=== PATIENT | male | born 1955 | race Caucasian/White ===

== ENCOUNTER 2017-06-27 08:11 | Outpatient (CLI) | payer BC ==
--- NOTE | 2017-06-27 11:00 | MRI ---
MRI LUMBAR SPINE WITHOUT CONTRAST: Comparison: None. History: Low back pain with pain extending down the left leg for awhile. Technique: Multiplanar, multisequence MRI images were obtained of the lumbar spine without contrast. FINDINGS: Generalized disc desiccation is seen. The vertebral bodies demonstrate normal height and alignment wi thout fracture or subluxation. There is hemangioma in the L3 vertebral body. The conus medullaris ter minates normally at T12-L1. The prevertebral and paraspinal soft tissues are unremarkable. T12-L1: Unremarkable. L1-2: A minimal disc osteophyte complex is seen. Mild bilateral posterior facet arthrosis. Mild centr al canal stenosis. No neural foraminal stenosis. L2-3: A large disc osteophyte complex is seen. Moderate to severe posterior facet arthrosis. Severe c entral canal stenosis. There is redundancy of the nerve roots just above this level. Mild to moderate bilateral neural foraminal stenosis. L3-4: A moderate disc osteophyte complex is seen. Mild bilateral posterior facet arthrosis. Moderate central canal stenosis. Moderate bilateral neural foraminal stenosis. L4-5: A moderate disc osteophyte complex is seen. Mild bilateral posterior facet arthrosis. Mild cent ral canal stenosis. Moderate bilateral neural foraminal stenosis. L5-S1: Unremarkable. IMPRESSION: Degenerative changes of the lumbar spine as above. POS: TARA
== END 2017-06-27 08:12 | disposition home or self-care (01) ==
LOC: TBSIIMAG 08:11
PROVIDERS: ATTEND Specialist
DX: M47.26 Other spondylosis with radiculopathy, lumbar region (principal)
CPT/HCPCS: 72148

== ENCOUNTER 2017-11-10 09:53 | Inpatient (IN) | payer BC ==
[2017-11-07 17:10] VITALS: BMI 30.5
[2017-11-10] MEDS ORDERED: CEFAZOLIN/Water 2 GM/20 ML SYRINGE ONE (10:41)
[2017-11-10] MEDS ORDERED: ePHEDrine/0.9% NaCl/PF SYRINGE 50 mg/10 ml ONE (11:09)
[2017-11-10] MEDS ORDERED: Dexamethasone 20 MG/5 ML VIAL ONE (11:09)
[2017-11-10] MEDS ORDERED: Glycopyrrolate 0.2 MG/ML 5 ML SYRINGE ONE (11:09)
[2017-11-10] MEDS ORDERED: Metoclopramide HCl 10 MG/2 ML VIAL ONE (11:09)
[2017-11-10] MEDS ORDERED: PROPOFOL 200 MG/20 ML VIAL ONE (11:09)
[2017-11-10] MEDS ORDERED: Ondansetron HCl/PF 4 MG/2 ML Vial ONE (11:09)
[2017-11-10] MEDS ORDERED: Lidocaine 1% PF 5 ML VIAL ONE (11:09)
[2017-11-10] MEDS ORDERED: PHENYLEPHRINE-NS 100 MCG/ML 10 ML SYRINGE ONE (11:09)
[2017-11-10] MEDS ORDERED: Bacitracin Zinc Ointment 30 gm TUBE ONE (11:37)
[2017-11-10] MEDS ORDERED: Sodium Chloride 0.9% 10 ML ONE (11:37)
[2017-11-10] MEDS ORDERED: Thrombin 5000 UNITS/5 ML VIAL ONE (11:37)
[2017-11-10] MEDS ORDERED: Fentanyl 100 MCG/2 ML VIAL ONE ×6 (12:34→18:05)
[2017-11-10] MEDS ORDERED: Mag-Al 1200 mg/1200 mg/30 ML UDCUP PO PRN (15:41)
[2017-11-10] MEDS ORDERED: Promethazine HCl 25 MG/ML VIAL IM PRN ×2 (15:41→16:32)
[2017-11-10] MEDS ORDERED: Fleet Enema 133 ML BOT PR PRN (15:41)
[2017-11-10] MEDS ORDERED: Acetaminophen 325 MG TAB PO PRN (15:41)
[2017-11-10] MEDS ORDERED: traMADol HCl 50 MG TAB PO PRN (15:41)
[2017-11-10] MEDS ORDERED: Bisacodyl 10 MG SUPP PR PRN (15:41)
[2017-11-10] MEDS ORDERED: Milk Of Magnesia 30 ML UDCUP PO PRN (15:41)
[2017-11-10] MEDS ORDERED: Acetaminophen/Codeine 30-300mg Tablet PO PRN (15:41)
[2017-11-10] MEDS ORDERED: Promethazine HCl 25 MG/ML VIAL SLOW IVP PRN (16:32)
[2017-11-10] MEDS ORDERED: Ondansetron HCl/PF 4 MG/2 ML Vial IVP PRN (16:32)
--- NOTE | 2017-11-10 19:36 | OP ---
OR: 12. WOUND TYPE: Type 1 wound. SURGEON: Stevne Smith M.D. STEAM BOX HAND: Marcelino Foley PA-C. PREPROCEDURE DIAGNOSES: Multilevel lumbar stenosis, low back and leg pain, left L3-L4 disk extrusion . POSTPROCEDURE DIAGNOSES: Multilevel lumbar stenosis, low back and leg pain, left L3-L4 disk extrusio n. PROCEDURES PERFORMED: 1. L2-L3, L3-L4, L4-L5 laminectomies, partial facetectomies and foraminotomies over the L2, L3, L4, L5 nerve roots. 2. Left L3-L4 diskectomy. 3. Use of operative microscope for microdissection. DESCRIPTION OF PROCEDURE: After informed consent was obtained from the patient, the patient was brou ght to OR 12. Proper patient pause and identification was carried out. He was placed on excellent g eneral endotracheal anesthesia and positioned prone on the OR table. The L2, L3, L4, L5 dorsal spine s and lamina were exposed. Following sterile cleansing and preparation draping, proper patient pause and identification exposure. L2, L3, L4 and L5 dorsal spines lamina were exposed. L2, L3, L4, L5 l aminectomies, partial facetectomies and foraminotomies were performed after localization. Left L3-L4 diskectomy was performed with use of the operative microscope for microdissection. We had excellent decompression of the L2, L3, L4, L5 nerve roots bilaterally. Hemostasis was maximized throughout. The wound was copiously irrigated, closed in anatomic layers following hemostasis and sprinkling of v ancomycin powder. The patient then emerged from anesthesia.
[2017-11-10] MEDS: Sodium Chloride 0.9% 1,000 ML IV SCH ×2 (20:10→23:57)
[2017-11-10] MEDS: Pregabalin 25 MG CAP PO SCH ×2 (20:11→20:37)
[2017-11-10] MEDS: CEFAZOLIN/Water 2 GM/20 ML SYRINGE SLOW IVP SCH (20:36)
[2017-11-10] MEDS: tiZANidine HCl 4 MG TAB PO PRN (20:36)
[2017-11-10] MEDS: HYDROcodone/Acetaminophen 7.5/325 mg Tablet PO PRN (20:36)
[2017-11-11] MEDS: CEFAZOLIN/Water 2 GM/20 ML SYRINGE SLOW IVP SCH (03:12)
[2017-11-11] MEDS: HYDROcodone/Acetaminophen 7.5/325 mg Tablet PO PRN ×2 (03:13→08:45)
[2017-11-11] MEDS: tiZANidine HCl 4 MG TAB PO PRN ×2 (03:13→10:09)
[2017-11-11 07:41] VITALS: BP 148/80; TEMP 97.9
[2017-11-11] MEDS: Pregabalin 25 MG CAP PO SCH (08:45)
[2017-11-11] MEDS ORDERED: Nebivolol HCl 5 MG TAB PO SCH (09:00)
[2017-11-11] MEDS ORDERED: Amlodipine 10 MG TAB PO SCH (09:00)
[2017-11-11] MEDS ORDERED: Losartan/Hydrochlorothiazide 100 mg/25 mg Tablet PO SCH (09:00)
--- NOTE | 2017-11-11 17:43 | PRG ---
DATE OF SERVICE: 11/11/2017 Mr. Conway is postoperative day #1 from L2-L5 decompression, L3-L4 left-sided diskectomy. He states his leg pain has resolved. He has some incisional pain. He has good strength in his lower extremity myotomes and has met criteria for dismissal. We went over intra and postoperative issues. He will be dismissed.
== END 2017-11-11 10:25 | disposition home or self-care (01) | DRG 520 ==
LOC: SDC 09:53 → SURG A 18:49
PROVIDERS: ADMIT Surgery; ATTEND Surgery
PROC: 0SB20ZZ Excision of Lumbar Vertebral Disc, Open Approach (ICD-10-PCS; principal; 2017-11-10)
PROC: 00NY0ZZ Release Lumbar Spinal Cord, Open Approach (ICD-10-PCS; 2017-11-10)
DX: M51.26 Other intervertebral disc displacement, lumbar region (principal); M54.16 Radiculopathy, lumbar region; M48.061 Spinal stenosis, lumbar region without neurogenic claudication
CPT/HCPCS: 76001; 96374; A4216; J1100; J2001; J2405; J2704; J2765; J3010; J3370; J3490

== ENCOUNTER 2018-02-08 07:26 | Outpatient (CLI) | payer BC ==
[2018-02-08 08:43] LABS: ALT (SGPT) 24 U/L (8-55); AST (SGOT) 18 U/L (5-34); Alkaline Phosphatase 72 U/L (40-150); Bilirubin, Direct 0.2 mg/dL (0.1-0.3); Bilirubin, Total 0.5 mg/dL (0.2-1.2); Protein, Total 6.8 g/dL (5.8-8.1)
--- NOTE | 2018-02-08 09:17 | ULT ---
ULTRASOUND RENAL BILATERAL STANDARD: HISTORY: Hypertension. COMPARISON: None. FINDINGS: Real-time, guzman scale, color flow, and spectral analysis of the kidneys, urinary bladder, and vessels was obtained. The right kidney measures 11 x 5 x 5.7 cm. The left kidney measures 12.3 x 6 x 6.4 cm. Prevoid urin ghanshyam bladder volume is 27 mL. The right mid renal artery velocity is 132 cm/s. The left mid renal artery peak systolic velocity is 111 cm/s. The renal artery to aorta ratio is 1.5 on the right and 1.3 on the left. There is an inferior pole right renal cyst measuring 2.3 cm. The arcuate resistive index on the righ t is 0.65 and on the left 0.73. IMPRESSION: 1. No evidence of renal artery stenosis. 2. Cysts of the inferior pole right kidney measuring up to 2.3 cm. 3. Mild elevation of the resistive indices, likely sequelae of chronic medical renal disease. POS: JOSE ANGEL
== END 2018-02-08 07:27 | disposition home or self-care (01) ==
LOC: SCSULT 07:26
PROVIDERS: ATTEND Internal Medicine Cardiovascular Disease
DX: Z01.810 Encounter for preprocedural cardiovascular examination (principal); I10 Essential (primary) hypertension; I48.0 Paroxysmal atrial fibrillation; B35.1 Tinea unguium; N28.1 Cyst of kidney, acquired
CPT/HCPCS: 36415; 76700; 76770; 80076

== ENCOUNTER 2018-03-16 16:12 | Outpatient (CLI) | payer BC | END 2018-03-16 16:13 | disposition home or self-care (01) | LOC: CTENTCT 16:12 | PROVIDERS: ATTEND Otolaryngology Plastic Surgery within the Head & Neck | DX: J32.9 Chronic sinusitis, unspecified (principal) | CPT/HCPCS: 70486 ==

== ENCOUNTER 2021-03-09 12:48 | Outpatient (CLI) | payer BC | END 2021-03-09 12:49 | disposition home or self-care (01) | LOC: TBSIIMAG 12:48 | PROVIDERS: ATTEND Specialist | DX: M47.26 Other spondylosis with radiculopathy, lumbar region (principal); Z98.890 Other specified postprocedural states | CPT/HCPCS: 72158; 82565 ==

== ENCOUNTER 2023-02-22 08:31 | Outpatient (CLI) | payer BC | END 2023-02-22 08:32 | disposition home or self-care (01) | LOC: ULT 08:31 | PROVIDERS: ATTEND Internal Medicine Cardiovascular Disease | DX: I10 Essential (primary) hypertension (principal); N28.1 Cyst of kidney, acquired; R93.421 Abnormal radiologic findings on diagnostic imaging of right kidney; R93.422 Abnormal radiologic findings on diagnostic imaging of left kidney | CPT/HCPCS: 36415; 76770; 80053; 80061; 83880; 84443; 85025; 93975 ==